=== PATIENT | male | born 1950 | race Caucasian/White ===

== ENCOUNTER → 2020-08-02 | Outpatient (RCR) | payer MEDICARE | LOC: PT 07-22 13:58 | PROVIDERS: ATTEND Physician Assistant | DX: Z47.1 Aftercare following joint replacement surgery (principal); Z96.652 Presence of left artificial knee joint ==

== ENCOUNTER 2020-08-30 13:00 | Outpatient (RCR) | payer MEDICARE | END 2020-09-02 | LOC: PT 13:00 | PROVIDERS: ATTEND Physician Assistant | CPT/HCPCS: 97139 ==

== ENCOUNTER 2020-09-27 13:00 | Outpatient (RCR) | payer MEDICARE | END 2020-10-02 | LOC: PT 13:00 | PROVIDERS: ATTEND Physician Assistant | DX: Z96.652 Presence of left artificial knee joint (principal); Z47.1 Aftercare following joint replacement surgery ==